=== PATIENT | male | born 1970 | race Caucasian/White ===

== ENCOUNTER 2025-06-06 15:31 | Emergency (ER) | payer BC, SELFPAY ==
[2025-06-06 15:32] VITALS: BP 125/71; PULSE 99; RESP 18; TEMP 36.9; O2SAT 94; BMI 32.3
--- NOTE | 2025-06-06 16:00 | EKG12_ITS ---
Test Reason : SYNCOPE Blood Pressure : */* mmHG Vent. Rate : 93 BPM Atrial Rate : 93 BPM P-R Int : 186 ms QRS Dur : 82 ms QT Int : 354 ms P-R-T Axes : 67 4 81 degrees QTcB Int : 440 ms Normal sinus rhythm Inferior infarct , age undetermined Abnormal ECG Confirmed by CHELITA SHAW, LUCRETIA ([id number]), purchase request editor HALIMA CHARLES ([id number]) on 06/08/2025 9:14:09 AM Referred By: Confirmed By: LUCRETIA MERLOS MD
[2025-06-06] MEDS: Lidocaine 1% (20 ml mdv) 20 ML Vial INFILT (16:40)
[2025-06-06 17:05] VITALS: BP 109/65; BP 117/72; BP 118/71; PULSE 81; PULSE 92; PULSE 97
[2025-06-06 17:07] VITALS: BP 118/71; PULSE 88; RESP 18; O2SAT 96
[2025-06-06 18:00] VITALS: PULSE 83; RESP 19; O2SAT 96
--- NOTE | 2025-06-06 18:15 | EX.ED.DYSGE1 ---
HPI History of Present Illness Chief Complaint: Syncope Detail of Chief Complaint: Patient presents after syncopal episode and laceration to his upper lip on Informant: patient and spouse/S.O. Onset/Context/Timing Onset: Today Context: Sudden Onset Timing: Intermittent Quality: Passed out, patient did have vagal prodrome symptoms Location: Garage having a cigarette Current Severity: Gone Maximum Severity: Severe Worsened by: Nothing to patient's knowledge Relieved by: Nothing Associated Symptoms Associated Symptoms: Nausea, diaphoresis, lightheadedness Narrative Narrative: Patient is a 55-year-old male. He is a smoker of half pack per day. He did smoke at 1 time [place] more than 1 pack/day. Patient has history of hypercholesterolemia. He is on multiple supplements. He is on no other medication. He has no known coronary disease. He states he went out to have a cigarette. He became lightheaded. This was followed by sensation of nausea cold sweats. He began to walk towards the steps to go into the house. He passed out before he got to the steps. He awoke on the floor. states it was on the video camera. He was out for approximately 2 minutes. There was no seizure activity. There is no loss of continence of urine or stool. Patient states his upper teeth are loose. He also has a laceration to his lip. He is not on an antithrombotic or anticoagulant. He denies headache. He denies double vision, blurred vision loss of vision. He denies bleeding from his nose. Eyes ringing in his ears. He denies neck pain. He denies paresthesia, anesthesia or motor weakness. He denies problems with coordination or balance. He denies abdominal pain, black or maroon stool the past 48 hours. Prior similar symptoms: No Recent Illness/Hospitalization: No [facility] Medical History HLD (hyperlipidemia) GERD (gastroesophageal reflux disease) Varicose vein of scrotum Home Medications ?Medication ?Instructions ?Recorded ?Last Taken ?Type ashwagandha extract 120 mg capsule 120 mg PO DAILY 06/06/25 06/02/25 History barrenwort extract 500 mg capsule 500 mg PO DAILY 06/06/25 06/02/25 History (Horny Goat [place]) inulin-sorbitol 2 gram chewable 1 tab PO DAILY 06/06/25 06/02/25 History tablet (Fiber Supplement (inulin)) magnesium 200 mg tablet 200 mg PO DAILY 06/06/25 06/02/25 History omega 2-rdc-for-fish oil 1,200 mg 2 cap PO DAILY 06/06/25 06/02/25 History (144 mg-216 mg) capsule (Fish Oil) omeprazole 40 mg capsule,delayed 40 mg PO DAILY 06/06/25 06/02/25 History release red beet 500 mg capsule 500 mg PO DAILY 06/06/25 06/02/25 History rosuvastatin 20 mg tablet 20 mg PO QHS 06/06/25 06/02/25 History turmeric 400 mg capsule 800 mg PO DAILY 06/06/25 06/02/25 History Allergy/AdvReac Type Severity Reaction Status Date / Time Penicillins Allergy Rash Verified 06/06/25 15:33 Social History Smoking Status: Current every day smoker tobacco type: cigarettes ROS ROS ED Constitutional Constitutional ED: Denies chills, fever(s), subjective, sweats or weight loss Eyes Eyes: Denies blurry vision or change in vision ENT ENT ED: Denies ear pain, rhinorrhea or sore throat Cardiovascular Cardiovascular: Denies chest pain, palpitations or racing heartbeat Respiratory/Chest Respiratory/Chest: Denies cough, dyspnea or dyspnea on exertion Gastrointestinal Gastrointestinal: Reports nausea; Denies abdominal pain, diarrhea, melena or vomiting Genitourinary Genitourinary ED: Denies dysuria, hematuria or urinary frequency Musculoskeletal Musculoskeletal: Denies back pain or neck pain Neurologic Neurologic: Denies paresthesias or weakness Endocrine Endocrinology: Denies cold intolerance or heat intolerance Hematologic/Lymphatic Hematologic/Lymphatic: Reports systems reviewed and no addt'l complaints, except as documented EXAM Physical Exam Const Vital Signs: 06/06/25 15:32 06/06/25 17:05 06/06/25 17:07 Temperature 98.4 F Temperature Source Temporal Pulse Rate 99 88 Pulse Rate [Lying] 81 Pulse Rate [Sitting (for 1 minute prior to obtaining)] 92 Pulse Rate [Standing (for 1 minute prior to obtaining)] 97 Respiratory Rate 18 18 Respiratory Effort Blood Pressure 125/71 H 118/71 Blood Pressure [Lying] 109/65 Blood Pressure [Sitting (for 1 minute prior to obtaining)] 117/72 Blood Pressure [Standing (for 1 minute prior to obtaining)] 118/71 Blood Pressure Mean 89 86 Blood Pressure Mean [Lying] 79 Blood Pressure Mean [Sitting (for 1 minute prior to obtaining)] 87 Blood Pressure Mean [Standing (for 1 minute prior to obtaining)] 86 Pulse Ox 94 96 Oxygen Delivery Method Room Air Room Air 06/06/25 17:10 06/06/25 18:00 Temperature Temperature Source Pulse Rate 83 Pulse Rate [Lying] Pulse Rate [Sitting (for 1 minute prior to obtaining)] Pulse Rate [Standing (for 1 minute prior to obtaining)] Respiratory Rate 19 H Respiratory Effort Normal Blood Pressure Blood Pressure [Lying] Blood Pressure [Sitting (for 1 minute prior to obtaining)] Blood Pressure [Standing (for 1 minute prior to obtaining)] Blood Pressure Mean Blood Pressure Mean [Lying] Blood Pressure Mean [Sitting (for 1 minute prior to obtaining)] Blood Pressure Mean [Standing (for 1 minute prior to obtaining)] Pulse Ox 96 Oxygen Delivery Method Room Air Positive well nourished and well developed Constitutional Narrative: Patient has bruising over the left maxillary region. There is also a laceration of the upper lip on the left side that involves the vermilion border. This require suturing. General Appearance ED: well developed HEENT Reports moist mucous membranes HEENT Narrative: Patient does have loose teeth from #7 to #10. Patient was informed the need to follow-up with his dentist to have dental x-rays to rule out root fracture. He also has caries noted. The frenulum is intact. Ears are normal. External auditory canals normal. There is no hemotympanum. There is no septal deviation or hematoma. Eyes PERRL and EOMs intact bilaterally Eyes Narrative: There is no step-off of the infraorbital nerve. There is no hyperesthesia to the infraorbital nerve. He has no diplopia with central glaze and there is no entrapment with upward gaze. There is no subconjunctival hemorrhage noted right or left. Neck no lymphadenopathy, supple and no JVD Neck Narrative: There is no midline posterior neck pain. Trachea is midline. Resp normal respiratory effort and clear to auscultation bilaterally Cardio regular rate, regular rhythm, S1 normal heart sound, S2 normal heart sound and no murmurs GI normal to inspection, nondistended, normoactive bowel sounds, non-tender and non-distended; Negative for hepatosplenomegaly Extremity normal to inspection General Extremety ED: Negative for edema or tenderness General Extremity: Negative for edema Neuro oriented x3, CN's II-XII intact bilaterally and no sensory deficits noted Neuro Narrative: There is no clonus or Babinski sign noted bilaterally. There is no dysmetria. Sensorium / Orientation: alert Motor Exam: strength 5/5 throughout Psych mental status grossly normal Skin Skin Narrative: Laceration of the upper lip. Please see procedure note. MDM MDM MDM Narrative Medical decision making narrative: Patient had a vasovagal syncopal episode. This is evident by his history and physical. EKG was obtained to rule out any evidence of ischemia. Please see procedure note for repair of his upper lip laceration which does involve the vermilion border. Plan is to anesthetized by infraorbital nerve block on the left. This was achieved using 1% lidocaine without epinephrine. EKG Initial EKG: Attestation: I personally reviewed and interpreted this EKG as follows: Interpretation: Sinus Rhythm (Rate is 93. In my opinion EKG is normal. Computer is reading inferior infarct of undetermined age. There is artifact. Parables 186 ms. History is an 82 ms. QT duration 3 and 54 ms. [place] is normal.) Procedures Other Procedures Procedure(s): Stellate laceration upper lip left side involving the medial border. Patient was now sized bite and formal nerve block using 1% lidocaine. After 10 minutes the wound was cleansed. Using 6-0 Ethilon total of 7 subpleural sutures were placed. For stitch was placed to align the vermilion border. This was achieved. Total length of the laceration is 2 cm. Discharge Plan Triage Chief Complaint: Syncope ED Provider: Sachin Crowe Dx/Rx/DC Orders Clinical Impression: Vasovagal syncope, Facial contusion, Laceration of vermilion border of upper lip Instructions: ED Laceration, Lip or Mouth, ED Fainting, Vagal Reaction Prescriptions: No Action omeprazole 40 mg capsule,delayed release(DR/EC) 40 mg PO DAILY rosuvastatin 20 mg tablet 20 mg PO QHS magnesium 200 mg tablet 200 mg PO DAILY Horny Goat [place] 500 mg capsule 500 mg PO DAILY ashwagandha extract 120 mg capsule 120 mg PO DAILY Fiber Supplement (inulin) 2 gram tablet,chewable 1 tab PO DAILY red beet 500 mg capsule 500 mg PO DAILY turmeric 400 mg capsule 800 mg PO DAILY omega 2-pnq-dbb-fish oil [Fish Oil] 1,200 (144-216) mg capsule 2 cap PO DAILY Primary Care Provider: Avni Cook Referrals: Avni Cook MD [Primary Care Provider, Internal Medicine] - 5 Days for suture removal Print Language: Somali Disposition Disposition: Home, Self Care
[2025-06-06 18:54] VITALS: BP 120/80; PULSE 80; RESP 16; TEMP 36.9; O2SAT 99
== END 2025-06-06 18:59 | disposition home or self-care (01) ==
PROVIDERS: Emergency Provider Emergency Medicine; PCP Internal Medicine Infectious Disease; Visit Provider Emergency Medicine
DX: S01.511A Laceration without foreign body of lip, initial encounter (principal); F17.210 Nicotine dependence, cigarettes, uncomplicated; E78.00 Pure hypercholesterolemia, unspecified; R55 Syncope and collapse; K21.9 Gastro-esophageal reflux disease without esophagitis; Z79.899 Other long term (current) drug therapy; X58.XXXA Exposure to other specified factors, initial encounter
CPT/HCPCS: 12011; 93005; 99285; A4216

== ENCOUNTER 2025-06-12 13:11 | Emergency (ER) | payer BC, SELFPAY ==
[2025-06-12 13:11] VITALS: BP 126/80; PULSE 66; RESP 14; TEMP 36.2; O2SAT 98; BMI 32.8
[2025-06-12 13:12] VITALS: BP 126/86; PULSE 68; RESP 18; O2SAT 97
--- OUTSIDE RECORDS SUMMARY | 2025-06-12 13:52 | XMS RPT_ITS | CCD ---
Author Organization [facility] Inform ion Partnership [facility] Care Team Providers Care Db2 Developer Name Role Phone BRANDON VEE Unavailable Unavailable TIFFANY KELLER Unavailable Unavailable Simón Medrano Unavailable Unavailable TIFFANY KELLER Unavailable Unavailable ELIZABETH PATTERSON Referring Unavailable TIFFANY KELLER MD Admitting Unavailable TIFFANY KELLER MD Primary Care Unavailable TIFFANY KELLER MD Consulting Unavailable TIFFANY KELLER MD Attending Unavailable PROVIDER, UNKNOWN Consulting Unavailable PROVIDER, UNKNOWN Consulting Unavailable PROVIDER, UNKNOWN Consulting Unavailable ELIZABETH PATTERSON PA%C Admitting Unavailable ELIZABETH PATTERSON PA%C Primary Care Unavailable ELIZABETH PATTERSON PA%Viktoriya Attending Unavailable TIFFANY KELLER MD Consulting Unavailable PROVIDER, UNKNOWN Consulting Unavailable PROVIDER, UNKNOWN Consulting Unavailable PROVIDER, UNKNOWN Consulting Unavailable Allergies Allergy Classification Reported Allergen(s) Allergy Type Date of Onset Reaction(s) Facility (1 source) Penicillins Drug allergy (disorder) 11-04-2015 [facility] Repository Problems Active Problems Problem Classification Problem Date Documented Da te Episodic/Chronic Disorders of lipid metabolism (2 sources) Pure hypercholesterole liz; Translations: [Pure hypercholesterole liz, unspecified] Onset: 02-12-2017 Chronic Esophageal disorders (1 source) Gastro-esophageal reflux disease without esophagitis; Translations: [GASTRO-ESOPHAGEA L REFLUX DISEASE WITHOUT ESOPHAGITIS] Onset: 02-12-2017 Chronic Other male genital disorders (1 source) Other specified disorders of penis; Translations: [OTHER SPECIFIED DISORDERS OF PENIS] Onset: 02-12-2017 Chronic Other screening for suspected conditions (not mental disorders or infectious disease) (1 source) Encounter for screening for malignant neoplasm of prostate; Translations: [Encounter for screening for malignant neoplasm of prostate] Onset: 11-11-2024 Episodic Substance-related disorders (1 source) Nicotine dependence, cigarettes, uncomplicated; Translations: [NICOTINE DEPENDENCE, CIGARETTES, UNCOMPLICATED] Onset: 02-12-2017 Chronic Past or Other Problems Problem Classification Problem Date Documented Da te Episodic/Chronic Other skin disorders (1 source) Rash and other nonspecific skin eruption; Translations: [RASH AND OTHER NONSPECIFIC SKIN ERUPTION] Onset: 02-12-2017 Episodic Results Test Name Value Interpretation Reference Range Facility CBC + DIFFon 11-13-2024 Baso # 0.04 x10EE3/UL Normal 0.00 - 0.10 [facility] Comment on above: Performed By: #### 2 [id number] #### [facility],[address] [place] [address] Basophils/100 WBC (Bld) 0.4 % Normal 0.0 - 2.0 [facility] Comment on above: Performed By: #### 2 27761 #### [facility],[address] [place] [address] CBC + DIFF Normal [facility] Comment on above: Result Comment: CBC- COMPLETE BLOOD COUNT Performed By: #### 2 66834 #### [facility],[address] [place] [address] EO # 0.18 x10EE3/UL Normal 0.00 - 0.50 [facility] Comment on above: Performed By: #### 2 18012 #### [facility],[address] [place], [place] [address] Eosinophils/100 WBC (Bld) 2.0 % Normal 0.0 - 7.0 [facility] Comment on above: Performed By: #### 2 66384 #### [facility],[address] [place] [address] Erythrocyte distribution width (RBC) [Ratio] 13.6 % Normal 12.0 - 15.6 [facility] Comment on above: Performed By: #### 2 46586 #### [facility],[address] [place] [address] Hematocrit (Bld) [Volume fraction] 42.9 % Normal 40.0 - 52.0 [facility] Comment on above: Performed By: #### 2 20030 #### [facility],[address] [place] [address] 83970 Hemoglobin (Bld) [Mass/Vol] 14.8 g/dL Normal 13.0 - 17.5 [facility] Comment on above: Performed By: #### 2 88989 #### [facility],[address] [place] [address] Lymph # 1.61 x10EE3/UL Normal 0.80 - 2.80 [facility] Comment on above: Performed By: #### 2 25352 #### [facility],[address] [place] [address] Lymphocytes/100 WBC (Bld) 18.1 % Low 20.0 - 45.0 [facility] Comment on above: Performed By: #### 2 91106 #### [facility],[address] [place], [place] [address] MANUAL DIFF N/A Normal [facility] Comment on above: Performed By: #### 2 10013 #### [facility],[address] [place] [address] 65453 MCH (RBC) [Entitic mass] 33 pg Normal 27 - 33 [facility] Comment on above: Performed By: #### 2 27891 #### [facility],[address] [place] [address] 04287 MCHC 35 X10 3 Normal 32 - 36 [facility] Comment on above: Performed By: #### 2 85189 #### [facility],[address] [place] [address] 25173 MCV (RBC) [Entitic vol] 95 fL Normal 81 - 98 [facility] Comment on above: Performed By: #### 2 24007 #### [facility],[address] [place] [address] 95294 [place] # 0.46 x10EE3/UL Normal 0.20 - 1.00 [facility] Comment on above: Performed By: #### 2 02987 #### [facility],[address] [place] [address] 63667 MONOS % 5.2 % Normal 0.0 - 10.0 [facility] Comment on above: Performed By: #### 2 23855 #### [facility],[address] [place] [address] 41736 Morphology Eusebio (Bld) [Interp] N/A Normal [facility] Comment on above: Performed By: #### 2 51744 #### [facility],[address] [place] [address] 24344 Neut # 6.64 x10EE3/UL Normal 1.50 - 7.10 [facility] Comment on above: Performed By: #### 2 12796 #### [facility],[address] [place] [address] 81999 Neutrophils/100 WBC (Bld) 74.3 % Normal 46.0 - 76.0 [facility] Comment on above: Performed By: #### 2 03828 #### [facility],[address] [place] [address] 17346 PLATELET 233 x10EE3/UL Normal 150 - 450 [facility] Comment on above: Performed By: #### 2 94029 #### [facility],[address] [place] [address] 70001 Platelet mean volume (Bld) [Entitic vol] 7.5 fL Normal 6.4 - 10.5 [facility] Comment on above: Result Comment: AUTO MATED DIFFERENTIAL Performed By: #### 2 04658 #### [facility],[address] [place] [address] 03010 RBC 4.54 x 10EE6/UL Normal 4.50 - 6.00 [facility] Comment on above: Performed By: #### 2 97041 #### [facility],[address] [place] [address] 75694 WBC 8.9 x 10EE3/UL Normal 4.5 - 10.8 [facility] Comment on above: Performed By: #### 2 39889 #### [facility],[address] [place] [address] 07592 CMP with eGFRon 11-13-2024 AGE 54 years Normal [facility] Comment on above: Performed By: #### 2 50146 #### [facility],[address] [place] [address] 06128 Albumin [Mass/Vol] 4.0 g/dL Normal 3.4 - 5.0 [facility] Comment on above: Performed By: #### 2 66379 #### [facility],[address] [place] [address] 70563 Albumin/Globulin [Mass ratio] 1.3 {ratio} Normal 0.9 - 1.6 [facility] Comment on above: Performed By: #### 2 67385 #### [facility],[address] [place] [address] 56018 ALK PHOS 60 U/L Normal 46 - 116 [facility] Comment on above: Performed By: #### 2 13596 #### [facility],[address] [place] [address] 57375 ALT [Catalytic activity/Vol] 42 U/L Normal 16 - 63 [facility] Comment on above: Performed By: #### 2 47260 #### [facility],[address] [place] [address] 18737 Anion gap [Moles/Vol] 11 mmol/L Normal 10 - 20 [facility] Comment on above: Performed By: #### 2 37001 #### [facility],[address] [place] [address] 16382 AST [Catalytic activity/Vol] 26 U/L Normal 15 - 37 [facility] Comment on above: Performed By: #### 2 11587 #### [facility],[address] [place] [address] 52049 B/C RATIO 6 ratio Normal 0 - 30 [facility] Comment on above: Performed By: #### 2 20574 #### [facility],[address] [place] [address] 76437 Bilirubin [Mass/Vol] 0.4 mg/dL Normal 0.2 - 1.0 [facility] Comment on above: Performed By: #### 2 95950 #### [facility],[address] [place] [address] 98267 Calcium [Mass/Vol] 9.1 mg/dL Normal 8.5 - 10.1 [facility] Comment on above: Performed By: #### 2 96731 #### [facility],[address] [place] [address] 21530 Chloride [Moles/Vol] 108 mmol/L High 98 - 107 [facility] Comment on above: Performed By: #### 2 50995 #### [facility],[address] [place], [place] [address] CMP with eGFR Normal [facility] Comment on above: Result Comment: COMP REHENSIVE METABOLIC PANEL Performed By: #### 2 89549 #### [facility],[address] [place] [address] 51243 CO2 [Moles/Vol] 28.0 mmol/L Normal 21.0 - 32.0 [facility] Comment on above: Performed By: #### 2 91724 #### [facility],[address] [place] [address] 81027 Creatinine [Mass/Vol] 0.95 mg/dL Normal 0.70 - 1.30 [facility] Comment on above: Performed By: #### 2 78979 #### [facility],[address] [place] [address] 50424 GFR/1.73 sq M.predicted among non-blacks MDRD (S/P/Bld) [Vol rate/Area] mL/min/{1.73_m2} Normal 60 - 999 [facility] Comment on above: Performed By: #### 2 81396 #### [facility],[address] [place] [address] Result Comment: ACCO RDING TO THE NATIONAL KIDNEY DISEASE EDUCATION PROGRAM(NKDE), A NORMAL eGFR IS A VALUE GREATER THAN OR EQUAL TO 60 ML/MIN/1.73 SQ METERS. CHRONIC KIDNEY DISEASE: <60mL/MIN/1.73 SQ METERS KIDNEY FAILURE: <15mL/MIN/1.73 SQ METERS THIS TEST SHOULD ONLY BE USED FOR PATIENTS 18 YEARS OF AGE AND OLDER. Globulin (S) [Mass/Vol] 3.2 g/dL Normal 1.5 - 3.8 [facility] Comment on above: Performed By: #### 2 30364 #### [facility],[address] [place] [address] Glucose [Mass/Vol] 101 mg/dL Normal 74 - 106 [facility] Comment on above: Performed By: #### 2 07103 #### [facility],[address] [place] [address] Potassium [Moles/Vol] 3.9 mmol/L Normal 3.5 - 5.1 [facility] Comment on above: Performed By: #### 2 90294 #### [facility],[address] [place] [address] Protein [Mass/Vol] 7.2 g/dL Normal 6.4 - 8.2 [facility] Comment on above: Performed By: #### 2 66469 #### [facility],[address] [place], [place] [address] Sodium [Moles/Vol] 143 mmol/L Normal 136 - 145 [facility] Comment on above: Performed By: #### 2 78452 #### [facility],[address] [place], [place] [address] Urea nitrogen [Mass/Vol] 6 mg/dL Low 7 - 18 [facility] Comment on above: Performed By: #### 2 18776 #### [facility],[address] [place], [place] [address] HEMOGLOBIN A1C (POM)on 11-13 Glucose [Mass/Vol] 116.9 mg/dL High 0.0 - 0.0 [facility] Comment on above: Result Comment: BLDo HEMOGLOBIN A1C REFERENCE RANGESBLDo Suggested Diagnosis HbA1c(%) HbA1C (mmol/mol Diabetic >/=6.5 >/=48 Prediabetes 5.7 - 6.4 39 - 47 Normal <5.7 <39 Performed By: #### 2 24195 #### [facility],[address] [place], [place] [address] HbA1c (Bld) [Mass fraction] 5.7 % Normal 0.0 - 6.5 [facility] Comment on above: Performed By: #### 2 21526 #### [facility],[address] [place] [address] 42944 LIPID PROFILEon 11-13-2024 Cholesterol [Mass/Vol] 119 mg/dL Normal 0 - 240 [facility] Comment on above: Performed By: #### 2 03018 #### [facility],[address] [place] [address] 86343 Cholesterol in HDL [Mass/Vol] 46 mg/dL Normal 40 - 60 [facility] Comment on above: Performed By: #### 2 89227 #### [facility],[address] [place] [address] 02157 Cholesterol in LDL [Mass/Vol] 58 mg/dL Normal 0 - 129 [facility] Comment on above: Performed By: #### 2 66169 #### [facility],[address] [place] [address] 54562 Cholesterol.total/ Cholesterol in HDL [Mass ratio] 2.6 {ratio} Normal 0.0 - 5.0 [facility] Comment on above: Performed By: #### 2 24909 #### [facility],[address] [place] [address] 48812 Lipid 1996 panel Normal [facility] Comment on above: Result Comment: LIPI D PROFILE Performed By: #### 2 40260 #### [facility],[address] [place] [address] 42227 Triglyceride [Mass/Vol] 73 mg/dL Normal 0 - 150 [facility] Comment on above: Performed By: #### 2 94934 #### [facility],[address] [place] [address] 63389 TSHon 11-13-2024 TSH Qn 0.94 m[IU]/L Normal 0.35 - 3.74 [facility] Comment on above: Performed By: #### 2 76371 #### [facility],[address] [place] [address] 01995 URINALYSISon 11-13-2024 Bilirubin Ql (U) Negative Normal NORMAL: NEGATIVE [facility] Comment on above: Performed By: #### 2 00723 #### [facility],[address] [place] [address] 83614 Clarity (U) clear Normal NORMAL: CLEAR [facility] Comment on above: Performed By: #### 2 54021 #### [facility],[address] [place] [address] 74666 Color (U) yellow Normal NORMAL: YELLOW [facility] Comment on above: Performed By: #### 2 70524 #### [facility],[address] [place] [address] 87296 Glucose Ql (U) NORM Normal NORMAL: NORMAL [facility] Comment on above: Performed By: #### 2 70755 #### [facility],[address] [place] [address] 01220 Hemoglobin Ql (U) Negative Normal NORMAL: NEGATIVE [facility] Comment on above: Performed By: #### 2 64049 #### [facility],[address] [place] [address] 09663 Ketone Negative Normal NORMAL: NEGATIVE [facility] Comment on above: Performed By: #### 2 99750 #### [facility],[address] [place] [address] 25386 Leukocytes Negative Normal NORMAL: NEGATIVE [facility] Comment on above: Performed By: #### 2 18012 #### [facility],[address] [place] [address] 18080 Nitrite Ql (U) Negative Normal NORMAL: NEGATIVE [facility] Comment on above: Performed By: #### 2 94185 #### [facility],[address] [place] [address] 35696 pH (U) 8 [pH] Normal NORMAL: 5.0-8.0 [facility] Comment on above: Performed By: #### 2 20340 #### [facility],[address] [place] [address] 67223 Protein Ql (U) Negative Normal NORMAL: NEGATIVE [facility] Comment on above: Performed By: #### 2 29074 #### [facility],[address] [place] [address] 20626 Sp [place] 1.010 Normal NORMAL: 1.010-1.030 [facility] Comment on above: Performed By: #### 2 32633 #### [facility],[address] [place] [address] 57302 Specimen Type R Normal [facility] Comment on above: Performed By: #### 2 61524 #### [facility],[address] [place] [address] 32122 Urinalysis dipstick W Reflex Microscopic panel (U) NOT INDICATED Normal [facility] Comment on above: Performed By: #### 2 61451 #### [facility],[address] [place] [address] 85518 Urobilinog NORM Normal NORMAL: NORMAL [facility] Comment on above: Performed By: #### 2 09368 #### [facility],[address] [place] [address] 21746 [place] Procedure Noteon [place] Procedure Note Normal [facility] ([place]) Final Surgical Pathology Rep [facility] 04-30-2017 Final Surgical Pathology Report . Pathology ReportsAccession: Collected Date/Time: Received Date/Time: Pathologist:[id number] 04/25/2017 10:37 EDT 04/25/2017 13:31 EDT MD ALEX SIMPSON Final Surgical Pathology ReportDIAGNOSIS:_RIGHT AND LEFT COLON, RANDOM BIOPSIES -- CHANGES SUGGESTIVE OF, BUT NOT DIAGNOSTIC, OF LYMPHOCYTIC/COLLAGENOUS COLITIS.Comment:Small lymphoid aggregates preclude a definitive classification of lymphocytic/collagenous colitis. There is no significant acute inflammation identified. There is no evidence of inflammatory bowel disease.COMMENT:[facility]# [id number] INFORMATION:WT. LOSS AND DIARRHEAProcedure: COLONOSCOPY WITH BXPreoperative diagnosis: HISTORY OF POLYPS / FAMILY HISTORY OF COLON CANCER / RECTAL PAIN / WEIGHT LOSS / DIARRHEAPostoperative diagnosis: R/O MICROSCOPIC COLITISSPECIMEN:_A COLON, BX - RANDOM - RIGHT & LEFT COLONGROSS DESCRIPTION:Received in formalin labeled random right and left colon biopsies are 4 hernandez glistening soft tissues ranging from 0.3-0.5 cm. A S -1Dictated by PRAKASH MONIQUE ([facility])MICROSCOPIC DESCRIPTION:Slides reviewed.Electronically Signed byPathology Report verified by [facility] HospitalElectronically signed by ALEX SIMPSON MDSign out Date: 04/30/2017 17:50Performing Lab: [facility], [address] [place] [address] Normal [facility] ([place] Comment on above: Performed By: #### S PFR ####[address] ENDO Procedure Recordon 04-25-2017 AO ENDO Procedure Record Normal [facility] [place] Anesthesiology Consultationo n 04-25-2017 Anesthesiology Consultation Normal [facility] [place] Anesthesiology Consultation Normal [facility] [place] Depart Summaryon 04-25-2017 Depart Summary Normal [facility] [place] History and Physicalon 04-25 History and Physical Normal [facility] [place] Outpatient Patient Summaryon 04-25-2017 Outpatient Patient Summary Normal [facility] [place] Encounters Encounter Date Encounter Type Care Provider Facility Start: 11-13-2024 End: 11-13-2024 ambulatory [facility] Start: 11-11-2024 End: 11-11-2024 ambulatory ELIZABETH SEBASTIANC YESENIA [facility] Start: 04-25-2017 End: 04-25-2017 Ambulatory BRANDON VEE Facility:B Start: 11-04-2015 End: 11-04-2015 Emergency department patient visit Simón Medrano Facility:[facility] Procedures Date Procedure Procedure Detail Performing Clinician Start: 11-13-2024 Urinalysis ELIZABETH HDZ AND Comment on above: Result Comment: URIN ALYSIS Performed By: #### 2 09216 #### [facility],[address] [place] [address] 20967 Start: 11-13-2024 PSA screening ELIZABETH IBRAHIM Comment on above: Performed By: #### 2 89861 #### [facility],[address] [place] [address] 64353 Payers Date Payer Category Payer Unknown [id number] 2017 Unknown [id number] 1970 Unknown [id number] 1970 Unknown [id number] Unknown [id number] Summary Purpose Family History No Family History Records FoundNo Family History Records FoundNo Family History Records Found Advance Directives No Advanced Directives Records FoundNo Advanced Directives Records FoundNo Advanced Directives Records Found Additional Source Comments (unrecognized sect ion and content) No Status Records FoundNo Status Records FoundNo Status Records Found INFORMATION SOURCE (unrecogn ized section and content) DATE CREATED AUTHOR 01/06/2018 [facility] ([place]) DATE CREATED AUTHOR AUTHOR'S ORGANIZ ATION 01/07/2018 [facility] DATE CREATED AUTHOR AUTHOR'S ORGANIZ ATION 11/16/2024 [facility] FOR RECORDS PERTAINING TO PATIENTS WHO ARE OR HAVE BEEN ENROLLED IN A CHEMICAL DEPENDENCY/SUBSTANCEABUSE PROGRAM, SOME INFORMATION MAY BE OMITTED. This clinical summary was aggregated from multiple sources. Caution should be exercised in using it in the provision of clinical care. This summary normalizes information from multiple sources, and as a consequence, information in this document may materially change the coding, format and clinical context of patient data. In addition, data may be omitted in some cases. CLINICAL DECISIONS SHOULD BE BASED ON THE PRIMARY CLINICAL RECORDS. [employer] [facility] provides no warranty or guarantee of the accuracy or completeness of information in this document.
[2025-06-12 13:56] VITALS: BP 127/82; PULSE 69; RESP 20; TEMP 36.8; O2SAT 95
--- NOTE | 2025-06-12 15:25 | EX.ED.DYSGE1 ---
HPI History of Present Illness Chief Complaint: Suture Remv Informant: patient and spouse/S.O. Narrative Narrative: 55-year-old male presenting to the emergency room chief complaint of suture removal. Patient states that a week ago he hit his face on the garage floor resulted in lip laceration which was repaired in the emergency department. He states it is time for the sutures to be removed. He notes some granulation tissue but no fevers or purulent drainage. PFSH PFS Medical History Smoker HLD (hyperlipidemia) GERD (gastroesophageal reflux disease) Varicose vein of scrotum Home Medications Medication Instructions Recorded Last Taken Type ashwagandha extract 120 mg capsule 120 mg PO DAILY 06/06/25 06/02/25 History barrenwort extract 500 mg capsule 500 mg PO DAILY 06/06/25 06/02/25 History (Horny Goat Parshall) inulin-sorbitol 2 gram chewable 1 tab PO DAILY 06/06/25 06/02/25 History tablet (Fiber Supplement (inulin)) magnesium 200 mg tablet 200 mg PO DAILY 06/06/25 06/02/25 History omega 8-gvk-fqa-fish oil 1,200 mg 2 cap PO DAILY 06/06/25 06/02/25 History (144 mg-216 mg) capsule (Fish Oil) omeprazole 40 mg capsule,delayed 40 mg PO DAILY 06/06/25 06/02/25 History release red beet 500 mg capsule 500 mg PO DAILY 06/06/25 06/02/25 History rosuvastatin 20 mg tablet 20 mg PO QHS 06/06/25 06/02/25 History turmeric 400 mg capsule 800 mg PO DAILY 06/06/25 06/02/25 History Allergy/AdvReac Type Severity Reaction Status Date / Time Penicillins Allergy Rash Verified 06/12/25 13:14 Social History Smoking Status: Current every day smoker tobacco type: cigarettes ROS ROS ED Constitutional Constitutional ED: Denies chills or weight loss Eyes Eyes: Denies blurry vision, change in vision or diplopia ENT ENT ED: Reports other Details: Healing lip laceration healing periorbital contusion ; Denies ear pain, rhinorrhea or sore throat Cardiovascular Cardiovascular: Denies chest pain, orthopnea, palpitations or racing heartbeat Respiratory/Chest Respiratory/Chest: Denies cough, dyspnea or orthopnea Gastrointestinal Gastrointestinal: Denies abdominal pain, diarrhea, nausea or vomiting Genitourinary Genitourinary ED: Denies dysuria, hematuria or urinary frequency Musculoskeletal Musculoskeletal: Denies arthralgias or myalgias Integumentary Denies abscess or rash Neurologic Neurologic: Denies headache(s) or weakness Psychiatric Psychiatric: Denies anxiety, depression, suicidal ideation or suicidal thoughts Endocrine Endocrinology: Denies polydipsia, polyphagia or polyuria Allergic/Immunologic Allergic/Immunologic ED: Denies mouth swelling, tongue swelling or urticaria EXAM Physical Exam Const Vital Signs: 06/12/25 13:11 06/12/25 13:12 06/12/25 13:56 Temperature 97.1 F L 98.3 F Temperature Source Temporal Pulse Rate 66 68 69 Respiratory Rate 14 18 20 H Blood Pressure 126/80 H 126/86 H 127/82 H Blood Pressure Mean 95 99 97 Pulse Ox 98 97 95 Oxygen Delivery Method Room Air Room Air Positive well nourished and well developed General Appearance ED: well developed HEENT Reports normocephalic, head/scalp atraumatic and moist mucous membranes HEENT Narrative: Left upper lip demonstrates a healing laceration. There are sutures in place. There is a 1 cm area where the lip appears to have dehisced it does not cross the vermilion border. I see granulation tissue but no obvious signs of infection. Eyes PERRL and EOMs intact bilaterally Neck no lymphadenopathy, supple and no JVD Resp normal respiratory effort and clear to auscultation bilaterally Cardio regular rate, regular rhythm and no murmurs GI normal to inspection, nondistended, normoactive bowel sounds and non-tender Palpation: soft Back/Spine no CVA tenderness and normal ROM Extremity normal to inspection General Extremety ED: Negative for edema General Extremity: Negative for edema Neuro oriented x3 and CN's II-XII intact bilaterally Sensorium / Orientation: alert Motor Exam: strength 5/5 throughout Psych mental status grossly normal Mood & Affect: Negative for depressed or tearful Skin no rashes or lesions noted and no wounds MDM MDM MDM Narrative Medical decision making narrative: The sutures were removed without difficulty. Spoke with the patient about local wound care. He notes understanding. Continue the local wound care. History & Record Review Discussion w/independent historian: Patient and Significant other Additional record(s) reviewed:: Prior ED visit Discharge Plan Triage Chief Complaint: Suture Remv ED Provider: Doni Cross Dx/Rx/DC Orders Clinical Impression: Visit for suture removal, Dehiscence of wound Instructions: Sutr or Stap Removal Prescriptions: No Action omeprazole 40 mg capsule,delayed release(DR/EC) 40 mg PO DAILY rosuvastatin 20 mg tablet 20 mg PO QHS magnesium 200 mg tablet 200 mg PO DAILY Horny Goat [place] 500 mg capsule 500 mg PO DAILY ashwagandha extract 120 mg capsule 120 mg PO DAILY Fiber Supplement (inulin) 2 gram tablet,chewable 1 tab PO DAILY red beet 500 mg capsule 500 mg PO DAILY turmeric 400 mg capsule 800 mg PO DAILY omega 1-ldl-wth-fish oil [Fish Oil] 1,200 (144-216) mg capsule 2 cap PO DAILY Primary Care Provider: Avni Cook Referrals: Avni Cook MD [Primary Care Provider, Internal Medicine] - As Needed Print Language: Japanese Disposition Disposition: Home, Self Care Discharge Date/Time: 06/12/25 13:58
== END 2025-06-12 13:58 | disposition home or self-care (01) ==
LOC: ED 13:50
PROVIDERS: Emergency Provider Emergency Medicine; PCP Internal Medicine Infectious Disease; Visit Provider Emergency Medicine
DX: Z48.02 Encounter for removal of sutures (principal); T81.33XA Disruption of traumatic injury wound repair, initial encounter; W22.09XA Striking against other stationary object, initial encounter; F17.210 Nicotine dependence, cigarettes, uncomplicated
CPT/HCPCS: 99282